=== PATIENT | female | born 1965 | race Two or more races ===

== ENCOUNTER 2018-07-16 15:39 | Outpatient (CLI) | payer OTHER ==
[~2018-07-16 15:39] MED LIST: ADULT ASPIRIN81 MG; CALCIONATE115 MG/5 M; DAFLONEX-XL TA1 EACH; EVISTA60 MG; LIPITOR20 MG; TRAMADOL HCL7.5 GM; VITAMIN D400 UNI2
== END 2018-07-16 16:59 | disposition home or self-care (01) ==
LOC: RAD 15:39
DX: J20.8 Acute bronchitis due to other specified organisms (principal); J12.89 Other viral pneumonia

== ENCOUNTER 2018-08-28 14:13 | Outpatient (CLI) | payer OTHER | END 2018-08-28 14:26 | disposition home or self-care (01) | LOC: RAD 14:13 | DX: R05 Cough (principal); J01.81 Other acute recurrent sinusitis ==

== ENCOUNTER 2021-06-18 13:43 | Outpatient (CLI) | payer OTHER | END 2021-06-18 13:59 | disposition home or self-care (01) | LOC: RAD 13:43 | PROVIDERS: ATTEND Internal Medicine Hematology & Oncology | DX: S62.0 Fracture of navicular [scaphoid] bone of wrist (principal); S62.303A Unspecified fracture of third metacarpal bone, left hand, initial encounter for closed fracture; M99.01 Segmental and somatic dysfunction of cervical region; M99.02 Segmental and somatic dysfunction of thoracic region; M99.03 Segmental and somatic dysfunction of lumbar region ==

== ENCOUNTER 2024-08-07 08:53 | Outpatient (CLI) | payer OTHER | END 2024-08-07 09:04 | disposition home or self-care (01) | LOC: SONOGRAMA 08:53 | PROVIDERS: ATTEND Internal Medicine Endocrinology, Diabetes & Metabolism | DX: E04.1 Nontoxic single thyroid nodule (principal) ==